=== PATIENT | male | born 1950 | race Caucasian/White ===

== ENCOUNTER → 2017-09-30 | Outpatient (CLI) | payer MEDICARE, OTHER ==
[~2017-09-30] MED LIST: ATOR20 PO; ATOR40TA PO; IBUP200 PO
== END ==
LOC: LAB SHORT 14:11 → PLD 14:11
DX: L98.9 Disorder of the skin and subcutaneous tissue, unspecified (principal)
CPT/HCPCS: 88305; 88312

== ENCOUNTER 2017-11-06 06:58 | Day surgery (SDC) | payer MEDICARE, OTHER ==
[~2017-11-06] VITALS: Ht 177.8 cm; Wt 82.1 kg
[~2017-11-06 06:58] MED LIST changes: +ATEN25; +CHLO25B; +FENO48; +LOSA25; +OMEPRAZOLE MAGN20 MG
== END 2017-11-06 09:16 | disposition home or self-care (01) ==
LOC: ORSCSDS 06:58
PROVIDERS: Internal Medicine Gastroenterology
PROC: 0DBN8ZX Excision of Sigmoid Colon, Via Natural or Artificial Opening Endoscopic, Diagnostic (ICD-10-PCS; principal; 2017-11-06 08:30)
DX: Z12.11 Encounter for screening for malignant neoplasm of colon (principal); K63.5 Polyp of colon; K57.30 Diverticulosis of large intestine without perforation or abscess without bleeding; K64.8 Other hemorrhoids; Z86.010 Personal history of colon polyps; K21.9 Gastro-esophageal reflux disease without esophagitis; E78.5 Hyperlipidemia, unspecified; I10 Essential (primary) hypertension; Z87.11 Personal history of peptic ulcer disease; Z87.891 Personal history of nicotine dependence; Z79.899 Other long term (current) drug therapy
CPT/HCPCS: J0330; J1980; J2405; J7120

== ENCOUNTER 2018-11-03 11:23 | Inpatient (IN) | payer OTHER, MEDICARE ==
[~2018-11-03] VITALS: Ht 175 cm; Wt 88.7 kg
[~2018-11-03 11:23] MED LIST changes: +AMLO5 PO; -ATEN25; +ATEN25 PO; -CHLO25B; +CHLO25B PO; +FISH OIL 1,0001 EAC1 PO; -LOSA25; +LOSA25 PO; +MELO7.5 PO; -OMEPRAZOLE MAGN20 MG; +OMEPRAZOLE MAGN20 MG PO; +THERA1 EACH PO; +THIA100I PO
--- NOTE | 2018-11-04 07:13 | NUR ---
Ambulatory in Day Surgery History, Chart, Medications and Allergies reviewed before start of procedure.Patient confirms NPO status and agrees with scheduled surgery. Patient reports completing Chlorhexadine shower X2 prior to admission to hospital.Surgical site prepped with 2% Chlorhexidine cloth wipe.
--- NOTE | 2018-11-04 10:24 | NUR ---
PT HAS BEEN RATING PAIN WITH OUT PROBELM AND IT WENT FROM 01/24 TO 07/27 HE CONTINUED TO MAON AND GANESH I TALKED WITH HIM ABOUT RATING PAIN HE CONMYNORINUES TO SAY 07/27. I THEN SHOWED HIM FACE SCALE PICTURES AND HE NOW RATES PAIN 11/24. MEDICATED PRESCRIBED
--- NOTE | 2018-11-04 15:03 | NUR ---
CALLED PHARMACY [facility] AND CEFAZOLIN COMPATABILE TO RUN.
--- NOTE | 2018-11-04 15:20 | NUR ---
Patient gave me a nursing teacher permission to access his charts and assist in his care on 11/05/18.
--- NOTE | 2018-11-04 17:43 | NUR ---
SHIFT SUMMARY S/P L ALYSE. AQUACEL DRESSING C/D/I. AAOX4. VSS. PT MEDICATED WITH TORODOL AND TYLENOL SCHEDULED PER EMAR AND PRN OXY 5MG X2. TOLERATING PO NO C/O N/V. PT AMBULATING TO CHAIR, PHYSICAL THERAPY IN ROOM TODAY. POLAR ALEX IN PLACE. AWAITING FIRST VOID. PLAN IS FOR HOME TOMORROW.
[2018-11-05 04:53] LABS: BASOPHILS ABSOLUTE AUTO 0.01 K/mm3 (0.00-0.23); BASOPHILS PERCENT AUTO 0 % (0-2); EOSINOPHILS PERCENT AUTO 0 % (0-6); Hematocrit 35.5 % (37.0-53.0); IMMATURE GRAN ABSOLUTE AUTO 0.05 K/mm3 (0.00-0.10); IMMATURE GRAN PERCENT AUTO 0 % (0-1); LYMPHOCYTES ABSOLUTE AUTO 0.65 K/mm3 (0.84-5.20); LYMPHOCYTES PERCENT AUTO 6 % (21-46); MONOCYTES ABSOLUTE AUTO 0.79 K/mm3 (0.16-1.47); MONOCYTES PERCENT AUTO 7 % (4-13); Mean Corpuscular HGB 34.1 pg (26.0-34.0); Mean Corpuscular HGB Conc 33.8 g/dL (31.5-36.5); Mean Corpuscular Volume 101 fL (80-100); Mean Platelet Volume 8.9 fL (9.1-12.4); NEUTROPHILS ABSOLUTE AUTO 9.94 K/mm3 (1.96-9.15); NEUTROPHILS PERCENT AUTO 87 % (41-73); Platelet Count 191 K/mm3 (150-400); RDW Coefficient Variation 12.9 % (11.7-14.2); RDW Standard Deviation 47.6 fL (35.1-46.3); Red Blood Cell Count 3.52 M/mm3 (4.30-5.90); White Blood Cell Count 11.44 K/mm3 (4.00-11.30)
[2018-11-05 05:00] LABS: Anion Gap 10 mmol/L (6-16); Blood Urea Nitrogen 31 mg/dL (8-24); CO2, Blood 27 mmol/L (21-32); Calcium, Blood 8.2 mg/dL (8.5-10.1); Chloride, Blood 98 mmol/L (98-108); Creatinine, Blood 1.07 mg/dL (0.60-1.20); Glomerular Filtration Rate >60 (60-); Glucose, Blood 145 mg/dL (70-99); Potassium, Blood 3.6 mmol/L (3.5-5.5); Sodium, Blood 135 mmol/L (136-145)
--- NOTE | 2018-11-05 05:11 | NUR ---
SHIFT SUMMARY PT POD#1 LEFT ALYSE. AAOX4. DISCOMFORT CONTROLLED WITH 10MG ROXICODONE Q4-5P. NO NAUSEA/EMESIS. AQUACEL C/D/I. PT UP SBA WITH FWW TO AMBULATE, UP TO DANGLE AT BEDSIDE MULTIPLES TIMES T/O NIGHT. GOOD PO INTAKE + IVF CONTINUED T/O NIGHT. URINE LIZANDRO IN COLOR. PT RESTED INFREQUENTLY T/O NIGHT. CONTINUE TO ENCOURAGE AMBULATION TODAY TOLERATED. CALL LIGHT IN REACH + PT USES FOR ASSISTANCE.
[2018-11-05] MEDS ORDERED: LO-DOSE ASPIRIN81 MG PO (09:30)
[2018-11-05] MEDS ORDERED: Percocet 5-3251 EACH PO (09:30)
--- NOTE | 2018-11-05 09:49 | NUR ---
ITCHING PATIENT REPORTS ITCHING ON HIS TRUNK, NO RASH OR REDNESS NOTED. PATIENT DENIES NEED FOR BENADRYL AND PATIENT WILL LET ME KNOW IF ITCHING WORSENS
--- NOTE | 2018-11-05 10:30 | NUR ---
11/05/18 1030 Valeriano Thompson CORECTION ON LOT NUMBER BY TRAY NOLASCO
--- NOTE | 2018-11-05 14:45 | NUR ---
DISCHARGE DISCHARGE INSTRUCTIONS REVIEWED WITH PATIENT AND HIS . NEW AQUACEL DRESSING APPLIED TO LEFT HIP. INCISION WITHOUT REDNESS, DRAINAGE AND IS APPROXIMATED. PRESCRIPTIONS PROVIDED TO PATIENT. PATIENT AND HIS DENY QUESTIONS REGARDING DISCHARGE
== END 2018-11-05 14:47 | disposition home or self-care (01) | DRG 470 ==
LOC: SURS 11-04 05:54 → PRE IP 11-04 07:30 → SURS 11-04 10:50
PROVIDERS: ADMIT Orthopaedic Surgery
PROC: 0SRB0JZ Replacement of Left Hip Joint with Synthetic Substitute, Open Approach (ICD-10-PCS; principal; 2018-11-04 07:30)
DX: M16.12 Unilateral primary osteoarthritis, left hip (principal); I10 Essential (primary) hypertension; E78.5 Hyperlipidemia, unspecified; K21.9 Gastro-esophageal reflux disease without esophagitis; K27.9 Peptic ulcer, site unspecified, unspecified as acute or chronic, without hemorrhage or perforation; K70.10 Alcoholic hepatitis without ascites
CPT/HCPCS: 36415; 72170; 80048; 85025; 86850; 86900; 86901; 88300; 97110; 97116; 97161; 97530; C1776; J0171; J0690; J0735; J1100; J1885; J2250; J2370; J2405; J2704; J2795; J3010; J7120

== ENCOUNTER 2020-03-30 14:23 | Day surgery (SDC) | payer OTHER, MEDICARE ==
[~2020-03-30 14:23] MED LIST changes: +LO-DOSE ASPIRIN81 MG PO; +Percocet 5-3251 EACH PO
== END 2020-03-30 16:00 | disposition home or self-care (01) ==
LOC: ATC 14:23
DX: M27.2 Inflammatory conditions of jaws (principal); I10 Essential (primary) hypertension; E66.9 Obesity, unspecified; Z87.891 Personal history of nicotine dependence; Z68.26 Body mass index [BMI] 26.0-26.9, adult; K21.9 Gastro-esophageal reflux disease without esophagitis; E78.2 Mixed hyperlipidemia; Z88.5 Allergy status to narcotic agent; Z88.8 Allergy status to other drugs, medicaments and biological substances; Z79.899 Other long term (current) drug therapy
CPT/HCPCS: 36569; 71045; C1751

== ENCOUNTER 2020-04-01 10:09 | Day surgery (SDC) | payer OTHER, MEDICARE ==
[2020-04-02] MEDS ORDERED: ERTAPENEM1 G1 IV (10:30)
== END 2020-04-01 15:46 | disposition home or self-care (01) ==
LOC: ATC 10:09
DX: M27.2 Inflammatory conditions of jaws (principal); I10 Essential (primary) hypertension; E66.9 Obesity, unspecified; Z68.26 Body mass index [BMI] 26.0-26.9, adult; Z87.891 Personal history of nicotine dependence; Z79.899 Other long term (current) drug therapy
CPT/HCPCS: 96365; J1335

== ENCOUNTER 2020-04-02 00:04 | Day surgery (SDC) | payer OTHER, MEDICARE ==
[2020-04-02] MEDS ORDERED: ERTAPENEM1 G1 IV (10:30)
== END 2020-04-02 10:25 | disposition home or self-care (01) ==
LOC: ATC 00:04
DX: M27.2 Inflammatory conditions of jaws (principal); I10 Essential (primary) hypertension; I24.8 Other forms of acute ischemic heart disease; E66.9 Obesity, unspecified; D50.9 Iron deficiency anemia, unspecified; Z68.26 Body mass index [BMI] 26.0-26.9, adult; Z79.2 Long term (current) use of antibiotics; Z88.5 Allergy status to narcotic agent; Z79.82 Long term (current) use of aspirin; Z79.899 Other long term (current) drug therapy; Z45.2 Encounter for adjustment and management of vascular access device; Z87.891 Personal history of nicotine dependence
CPT/HCPCS: 96365; J1335

== ENCOUNTER 2020-04-03 00:05 | Day surgery (SDC) | payer OTHER, MEDICARE ==
[~2020-04-03 00:05] MED LIST changes: +ERTAPENEM1 G1 IV
== END 2020-04-03 11:42 | disposition home or self-care (01) ==
LOC: ATC 00:05
DX: M27.2 Inflammatory conditions of jaws (principal); I10 Essential (primary) hypertension; E66.9 Obesity, unspecified; K04.7 Periapical abscess without sinus; Z68.26 Body mass index [BMI] 26.0-26.9, adult; Z79.899 Other long term (current) drug therapy
CPT/HCPCS: 96365; J1335

== ENCOUNTER 2020-04-04 00:27 | Day surgery (SDC) | payer OTHER, MEDICARE | END 2020-04-04 16:30 | disposition home or self-care (01) | LOC: ATC 00:27 | DX: M27.2 Inflammatory conditions of jaws (principal); I10 Essential (primary) hypertension; E66.9 Obesity, unspecified; K04.7 Periapical abscess without sinus; Z87.891 Personal history of nicotine dependence; Z68.26 Body mass index [BMI] 26.0-26.9, adult; Z79.899 Other long term (current) drug therapy | CPT/HCPCS: 96365; J1335 ==

== ENCOUNTER 2020-04-05 00:27 | Day surgery (SDC) | payer OTHER, MEDICARE | END 2020-04-05 11:00 | disposition home or self-care (01) | LOC: ATC 00:27 | DX: M27.2 Inflammatory conditions of jaws (principal); I10 Essential (primary) hypertension; I24.8 Other forms of acute ischemic heart disease; E66.9 Obesity, unspecified; E78.2 Mixed hyperlipidemia; R73.03 Prediabetes; M17.12 Unilateral primary osteoarthritis, left knee; Z68.26 Body mass index [BMI] 26.0-26.9, adult; Z79.2 Long term (current) use of antibiotics; Z79.82 Long term (current) use of aspirin; Z79.899 Other long term (current) drug therapy; Z88.5 Allergy status to narcotic agent; Z88.8 Allergy status to other drugs, medicaments and biological substances; Z87.891 Personal history of nicotine dependence | CPT/HCPCS: 96365; J1335 ==

== ENCOUNTER 2020-04-06 00:33 | Day surgery (SDC) | payer OTHER, MEDICARE ==
[2020-04-06 11:17] LABS: BASOPHILS ABSOLUTE AUTO 0.07 K/mm3 (0.00-0.23); BASOPHILS PERCENT AUTO 1 % (0-2); EOSINOPHILS ABSOLUTE AUTO 0.04 K/mm3 (0.00-0.68); EOSINOPHILS PERCENT AUTO 1 % (0-6); Hemoglobin 13.3 g/dL (13.5-17.5); IMMATURE GRAN ABSOLUTE AUTO 0.02 K/mm3 (0.00-0.10); IMMATURE GRAN PERCENT AUTO 0 % (0-1); LYMPHOCYTES ABSOLUTE AUTO 1.12 K/mm3 (0.84-5.20); LYMPHOCYTES PERCENT AUTO 16 % (21-46); MONOCYTES ABSOLUTE AUTO 0.75 K/mm3 (0.16-1.47); MONOCYTES PERCENT AUTO 11 % (4-13); Mean Corpuscular HGB 34.4 pg (26.0-34.0); Mean Corpuscular HGB Conc 33.3 g/dL (31.5-36.5); Mean Corpuscular Volume 103 fL (80-100); Mean Platelet Volume 8.9 fL (9.1-12.4); NEUTROPHILS ABSOLUTE AUTO 5.11 K/mm3 (1.96-9.15); NEUTROPHILS PERCENT AUTO 72 % (41-73); Platelet Count 214 K/mm3 (150-400); RDW Coefficient Variation 13.5 % (11.7-14.2); RDW Standard Deviation 51.5 fL (35.1-46.3); Red Blood Cell Count 3.87 M/mm3 (4.30-5.90); White Blood Cell Count 7.11 K/mm3 (4.00-11.30)
[2020-04-06 11:32] LABS: Alanine Aminotransfer (ALT/SGP 95 U/L (12-78); Albumin, Blood 3.3 g/dL (3.4-5.0); Albumin/Globulin Ratio 0.8 (0.8-1.8); Alk Phos 116 U/L (50-136); Anion Gap 7 mmol/L (6-16); Aspartate Aminotrans (AST/SGOT 89 U/L (12-37); Bilirubin, Total 0.4 mg/dL (0.1-1.0); Blood Urea Nitrogen 25 mg/dL (8-24); Bun/Creatinine Ratio 26.4 (12.0-20.0); CO2, Blood 29 mmol/L (21-32); Calcium, Blood 9.3 mg/dL (8.5-10.1); Chloride, Blood 104 mmol/L (98-108); Creatinine, Blood 0.95 mg/dL (0.60-1.20); Globulin, Blood 4.4 g/dL (2.2-4.0); Glomerular Filtration Rate >60 (60-); Glucose, Blood 120 mg/dL (70-99); Potassium, Blood 3.4 mmol/L (3.5-5.5); Sodium, Blood 140 mmol/L (136-145); Total Protein, Blood 7.7 g/dL (6.4-8.2)
[2020-04-07] MEDS ORDERED: Hair, Skin & N1 EACH PO (10:45)
[2020-04-07] MEDS ORDERED: Aspir 8181 MG PO (10:45)
[2020-04-07] MEDS ORDERED: B-1100 M1 PO (10:46)
== END 2020-04-06 10:59 | disposition home or self-care (01) ==
LOC: ATC 00:33
PROVIDERS: Internal Medicine Infectious Disease
DX: M27.2 Inflammatory conditions of jaws (principal); I10 Essential (primary) hypertension; E66.9 Obesity, unspecified; K04.7 Periapical abscess without sinus; Z79.899 Other long term (current) drug therapy; Z87.891 Personal history of nicotine dependence; Z68.26 Body mass index [BMI] 26.0-26.9, adult
CPT/HCPCS: 80053; 85025; 85651; 86140; 96365; J1335

== ENCOUNTER 2020-04-07 00:39 | Day surgery (SDC) | payer OTHER, MEDICARE ==
[2020-04-07] MEDS ORDERED: Hair, Skin & N1 EACH PO (10:45)
[2020-04-07] MEDS ORDERED: Aspir 8181 MG PO (10:45)
[2020-04-07] MEDS ORDERED: B-1100 M1 PO (10:46)
== END 2020-04-07 11:08 | disposition home or self-care (01) ==
LOC: ATC 00:39
DX: M27.2 Inflammatory conditions of jaws (principal); I10 Essential (primary) hypertension; E66.9 Obesity, unspecified; K04.7 Periapical abscess without sinus; Z87.891 Personal history of nicotine dependence; Z68.26 Body mass index [BMI] 26.0-26.9, adult; Z79.899 Other long term (current) drug therapy
CPT/HCPCS: 96365; J1335

== ENCOUNTER 2020-04-08 02:07 | Day surgery (SDC) | payer OTHER, MEDICARE ==
[~2020-04-08 02:07] MED LIST changes: +Aspir 8181 MG PO; +B-1100 M1 PO; +Hair, Skin & N1 EACH PO
== END 2020-04-08 15:15 | disposition home or self-care (01) ==
LOC: ATC 02:07
DX: M27.2 Inflammatory conditions of jaws (principal); I10 Essential (primary) hypertension; E66.9 Obesity, unspecified; K04.7 Periapical abscess without sinus; Z68.26 Body mass index [BMI] 26.0-26.9, adult; Z87.891 Personal history of nicotine dependence; Z79.899 Other long term (current) drug therapy
CPT/HCPCS: 96365; J1335

== ENCOUNTER 2020-04-09 00:16 | Day surgery (SDC) | payer OTHER, MEDICARE | END 2020-04-09 10:22 | disposition home or self-care (01) | LOC: ATC 00:16 | DX: M27.2 Inflammatory conditions of jaws (principal); I10 Essential (primary) hypertension; K04.7 Periapical abscess without sinus; E66.9 Obesity, unspecified; Z68.26 Body mass index [BMI] 26.0-26.9, adult; Z79.899 Other long term (current) drug therapy | CPT/HCPCS: 96365; J1335 ==

== ENCOUNTER 2020-04-11 00:10 | Day surgery (SDC) | payer OTHER, MEDICARE | END 2020-04-11 14:57 | disposition home or self-care (01) | LOC: ATC 00:10 | DX: M27.2 Inflammatory conditions of jaws (principal); I10 Essential (primary) hypertension; I24.8 Other forms of acute ischemic heart disease; E78.2 Mixed hyperlipidemia; R73.03 Prediabetes; M17.12 Unilateral primary osteoarthritis, left knee; E66.9 Obesity, unspecified; Z68.26 Body mass index [BMI] 26.0-26.9, adult; Z79.2 Long term (current) use of antibiotics; Z79.82 Long term (current) use of aspirin; Z79.899 Other long term (current) drug therapy; Z88.5 Allergy status to narcotic agent; Z87.891 Personal history of nicotine dependence | CPT/HCPCS: 96365; J1335 ==

== ENCOUNTER 2020-04-12 00:21 | Day surgery (SDC) | payer OTHER, MEDICARE | END 2020-04-12 10:35 | disposition home or self-care (01) | LOC: ATC 00:21 | DX: M27.2 Inflammatory conditions of jaws (principal); I10 Essential (primary) hypertension; I24.8 Other forms of acute ischemic heart disease; E78.2 Mixed hyperlipidemia; R73.03 Prediabetes; M17.12 Unilateral primary osteoarthritis, left knee; E66.9 Obesity, unspecified; Z68.26 Body mass index [BMI] 26.0-26.9, adult; Z79.2 Long term (current) use of antibiotics; Z79.82 Long term (current) use of aspirin; Z79.899 Other long term (current) drug therapy; Z88.5 Allergy status to narcotic agent; Z87.891 Personal history of nicotine dependence | CPT/HCPCS: 96365; J1335 ==

== ENCOUNTER 2020-04-14 00:21 | Day surgery (SDC) | payer OTHER, MEDICARE | END 2020-04-14 10:50 | disposition home or self-care (01) | LOC: ATC 00:21 | DX: M27.2 Inflammatory conditions of jaws (principal); I10 Essential (primary) hypertension; E66.9 Obesity, unspecified; Z68.26 Body mass index [BMI] 26.0-26.9, adult; Z79.899 Other long term (current) drug therapy; K04.7 Periapical abscess without sinus | CPT/HCPCS: 96365; J1335 ==

== ENCOUNTER 2020-04-15 01:35 | Day surgery (SDC) | payer OTHER, MEDICARE | END 2020-04-15 11:02 | disposition home or self-care (01) | LOC: ATC 01:35 | DX: M27.2 Inflammatory conditions of jaws (principal); I10 Essential (primary) hypertension; E66.9 Obesity, unspecified; Z68.26 Body mass index [BMI] 26.0-26.9, adult; Z79.899 Other long term (current) drug therapy | CPT/HCPCS: J1335 ==

== ENCOUNTER 2020-04-16 05:25 | Day surgery (SDC) | payer OTHER, MEDICARE | END 2020-04-16 10:20 | disposition home or self-care (01) | LOC: ATC 05:25 | DX: M27.2 Inflammatory conditions of jaws (principal); I10 Essential (primary) hypertension; I24.8 Other forms of acute ischemic heart disease; R73.03 Prediabetes; E78.2 Mixed hyperlipidemia; M17.12 Unilateral primary osteoarthritis, left knee; E66.9 Obesity, unspecified; Z68.26 Body mass index [BMI] 26.0-26.9, adult; Z79.2 Long term (current) use of antibiotics; Z79.82 Long term (current) use of aspirin; Z79.899 Other long term (current) drug therapy; Z88.5 Allergy status to narcotic agent; Z87.891 Personal history of nicotine dependence | CPT/HCPCS: J1335 ==

== ENCOUNTER 2020-04-17 09:48 | Day surgery (SDC) | payer OTHER, MEDICARE | END 2020-04-17 10:31 | disposition home or self-care (01) | LOC: ATC 09:48 | DX: M27.2 Inflammatory conditions of jaws (principal); I10 Essential (primary) hypertension; E66.9 Obesity, unspecified; Z68.26 Body mass index [BMI] 26.0-26.9, adult; Z79.899 Other long term (current) drug therapy; K04.7 Periapical abscess without sinus | CPT/HCPCS: J1335 ==

== ENCOUNTER 2020-04-19 02:12 | Day surgery (SDC) | payer OTHER, MEDICARE ==
--- NOTE | 2020-04-19 11:47 | NUR ---
PT CONCERNED THAT HIS INFECTION IS NOT GONE IN HIS NECK. PT STATES HE STILL HAS A DRAIN IN HIS NECK. DISCUSSED WITH PT WHAT THE LAB WORK IS SHOWING.
== END 2020-04-19 10:33 | disposition home or self-care (01) ==
LOC: ATC 02:12
DX: M27.2 Inflammatory conditions of jaws (principal); Z68.26 Body mass index [BMI] 26.0-26.9, adult; E66.9 Obesity, unspecified; I10 Essential (primary) hypertension; Z79.899 Other long term (current) drug therapy
CPT/HCPCS: 96365; J1335

== ENCOUNTER 2021-04-03 16:55 | Inpatient (IN) | payer OTHER ==
[~2021-04-03] VITALS: Ht 177.8 cm; Wt 80.0 kg
[2021-04-03 18:18] LABS: BASOPHILS ABSOLUTE AUTO 0.05 K/mm3 (0.00-0.23); BASOPHILS PERCENT AUTO 0 % (0-2); EOSINOPHILS ABSOLUTE AUTO 0.05 K/mm3 (0.00-0.68); EOSINOPHILS PERCENT AUTO 0 % (0-6); Hematocrit 40.5 % (37.0-53.0); Hemoglobin 14.2 g/dL (13.5-17.5); IMMATURE GRAN ABSOLUTE AUTO 0.07 K/mm3 (0.00-0.10); IMMATURE GRAN PERCENT AUTO 1 % (0-1); LYMPHOCYTES ABSOLUTE AUTO 0.89 K/mm3 (0.84-5.20); LYMPHOCYTES PERCENT AUTO 8 % (21-46); MONOCYTES ABSOLUTE AUTO 1.04 K/mm3 (0.16-1.47); MONOCYTES PERCENT AUTO 9 % (4-13); Mean Corpuscular HGB Conc 35.1 g/dL (31.5-36.5); Mean Corpuscular Volume 103 fL (80-100); Mean Platelet Volume 8.7 fL (9.1-12.4); NEUTROPHILS ABSOLUTE AUTO 9.53 K/mm3 (1.96-9.15); NEUTROPHILS PERCENT AUTO 82 % (41-73); Platelet Count 271 K/mm3 (150-400); RDW Coefficient Variation 13.4 % (11.7-14.2); RDW Standard Deviation 51.4 fL (35.1-46.3); Red Blood Cell Count 3.94 M/mm3 (4.30-5.90); White Blood Cell Count 11.63 K/mm3 (4.00-11.30)
[2021-04-03] MEDS ORDERED: Mobic15 MG PO (18:24)
[2021-04-03] MEDS ORDERED: ROSU10TA PO (18:25)
[2021-04-03 18:52] LABS: Bun/Creatinine Ratio 22.8 (12.0-20.0); Calcium, Blood 9.3 mg/dL (8.5-10.1); Creatinine, Blood 1.49 mg/dL (0.60-1.20); Potassium, Blood 2.7 mmol/L (3.5-5.5)
[2021-04-03 21:51] LABS: SARS-Cov-2 (COVID-19) PCR, MMC NEGATIVE (NEGATIVE)
--- NOTE | 2021-04-04 01:32 | NUR ---
ADMISSION: RECEIVED PT FROM ER AAOX3. VSS. ORIENTED PT TO CALL LIGHT, ROOM, AND SURROUNDINGS. ON TELE SR. ABD FIRM AND TENDER. BOWEL SOUNDS POSITIVE. IVF INFUSING. POTASSIUM GIVEN PER ORDER. CALL LIGHT WTHIN REACH. WILL CONTINUE TO MONITOR.
[2021-04-04 05:11] LABS: BASOPHILS ABSOLUTE AUTO 0.05 K/mm3 (0.00-0.23); BASOPHILS PERCENT AUTO 1 % (0-2); EOSINOPHILS ABSOLUTE AUTO 0.06 K/mm3 (0.00-0.68); EOSINOPHILS PERCENT AUTO 1 % (0-6); Hematocrit 37.9 % (37.0-53.0); Hemoglobin 13.4 g/dL (13.5-17.5); IMMATURE GRAN ABSOLUTE AUTO 0.06 K/mm3 (0.00-0.10); IMMATURE GRAN PERCENT AUTO 1 % (0-1); LYMPHOCYTES ABSOLUTE AUTO 1.16 K/mm3 (0.84-5.20); LYMPHOCYTES PERCENT AUTO 11 % (21-46); MONOCYTES ABSOLUTE AUTO 1.05 K/mm3 (0.16-1.47); MONOCYTES PERCENT AUTO 10 % (4-13); Mean Corpuscular HGB 36.6 pg (26.0-34.0); Mean Corpuscular HGB Conc 35.4 g/dL (31.5-36.5); Mean Corpuscular Volume 104 fL (80-100); Mean Platelet Volume 8.8 fL (9.1-12.4); NEUTROPHILS ABSOLUTE AUTO 8.67 K/mm3 (1.96-9.15); NEUTROPHILS PERCENT AUTO 79 % (41-73); Platelet Count 240 K/mm3 (150-400); RDW Coefficient Variation 13.6 % (11.7-14.2); RDW Standard Deviation 52.2 fL (35.1-46.3); Red Blood Cell Count 3.66 M/mm3 (4.30-5.90); White Blood Cell Count 11.05 K/mm3 (4.00-11.30)
[2021-04-04 05:26] LABS: Bun/Creatinine Ratio 24.8 (12.0-20.0); Calcium, Blood 8.7 mg/dL (8.5-10.1); Creatinine, Blood 1.21 mg/dL (0.60-1.20); Potassium, Blood 2.9 mmol/L (3.5-5.5)
[2021-04-04 14:35] LABS: Anion Gap 8 mmol/L (6-16); Blood Urea Nitrogen 26 mg/dL (8-24); Bun/Creatinine Ratio 23.9 (12.0-20.0); CO2, Blood 23 mmol/L (21-32); Calcium, Blood 9.2 mg/dL (8.5-10.1); Chloride, Blood 106 mmol/L (98-108); Creatinine, Blood 1.09 mg/dL (0.60-1.20); Glomerular Filtration Rate >60 (60-); Glucose, Blood 127 mg/dL (70-99); Potassium, Blood 2.9 mmol/L (3.5-5.5); Sodium, Blood 137 mmol/L (136-145)
--- NOTE | 2021-04-04 18:23 | NUR ---
PT AAOX4, NO ACUTE DISTRESS,POC REVIEWED WITH PT, POTASSIUM AM 2.9, REPLACED BY 40 MEQ PO. RECHECKED LABS, 2.9 STILL, N.O FOR 20 MEQ X 2 PIGGY BAG POTASSUIM. INFUSING . PT C/O OF DIARRHEA, STOOL SPECIMEN NEEDED, HAT IN AWAITING FOR BM. PT AWARE OF ORDERS,NEXT SHIFT TO FOLLOW. PT CONTINENT OF B/B.CALL WITHIN RANGE AND MONITORING CONTNIUES
--- NOTE | 2021-04-04 18:46 | NUR ---
STOOL SPECIMEN COLLECTED
[2021-04-04 21:27] LABS: Adenovirus F 40/41 Not Detected (NOT DETECT); Astrovirus Not Detected (NOT DETECT); Campylobacter Sp Not Detected (NOT DETECT); Cryptosporidium Not Detected (NOT DETECT); Cyclospora Cayetanensis Not Detected (NOT DETECT); E. Coli O157 Not Detected (NOT DETECT); Entamoeba Histolytica Not Detected (NOT DETECT); Enteroaggregative E. coli-EAEC Not Detected (NOT DETECT); Enteropathogenic E. coli-EPEC Not Detected (NOT DETECT); Enterotoxigenic E. coli-ETEC Not Detected (NOT DETECT); Giardia Lamblia Not Detected (NOT DETECT); Norovirus GI/GII Not Detected (NOT DETECT); Plesiomonas Shigelloides Not Detected (NOT DETECT); Rotavirus A Not Detected (NOT DETECT); Salmonella Sp Not Detected (NOT DETECT); Sapovirus Not Detected (NOT DETECT); Shiga Toxin-prod E. coli-STEC Not Detected (NOT DETECT); Shigella/Enteroin E. coli-EIEC Not Detected (NOT DETECT); Vibrio Cholerae Not Detected (NOT DETECT); Vibrio Sp Not Detected (NOT DETECT); Yersinia Enterocolitica Not Detected (NOT DETECT)
[2021-04-05 05:06] LABS: BASOPHILS ABSOLUTE AUTO 0.07 K/mm3 (0.00-0.23); BASOPHILS PERCENT AUTO 1 % (0-2); EOSINOPHILS ABSOLUTE AUTO 0.11 K/mm3 (0.00-0.68); EOSINOPHILS PERCENT AUTO 1 % (0-6); Hematocrit 37.9 % (37.0-53.0); Hemoglobin 13.3 g/dL (13.5-17.5); IMMATURE GRAN ABSOLUTE AUTO 0.05 K/mm3 (0.00-0.10); IMMATURE GRAN PERCENT AUTO 1 % (0-1); LYMPHOCYTES PERCENT AUTO 10 % (21-46); MONOCYTES ABSOLUTE AUTO 0.78 K/mm3 (0.16-1.47); MONOCYTES PERCENT AUTO 9 % (4-13); Mean Corpuscular HGB Conc 35.1 g/dL (31.5-36.5); Mean Corpuscular Volume 103 fL (80-100); Mean Platelet Volume 8.8 fL (9.1-12.4); NEUTROPHILS ABSOLUTE AUTO 7.17 K/mm3 (1.96-9.15); NEUTROPHILS PERCENT AUTO 79 % (41-73); Platelet Count 252 K/mm3 (150-400); RDW Coefficient Variation 13.2 % (11.7-14.2); RDW Standard Deviation 50.7 fL (35.1-46.3); Red Blood Cell Count 3.69 M/mm3 (4.30-5.90); White Blood Cell Count 9.08 K/mm3 (4.00-11.30)
[2021-04-05 05:23] LABS: Albumin, Blood 2.4 g/dL (3.4-5.0); Anion Gap 9 mmol/L (6-16); Blood Urea Nitrogen 21 mg/dL (8-24); Bun/Creatinine Ratio 21.3 (12.0-20.0); CO2, Blood 22 mmol/L (21-32); Chloride, Blood 106 mmol/L (98-108); Creatinine, Blood 0.99 mg/dL (0.60-1.20); Glomerular Filtration Rate >60 (60-); Glucose, Blood 106 mg/dL (70-99); Phosphorus, Blood 2.4 mg/dL (2.5-4.9); Potassium, Blood 2.8 mmol/L (3.5-5.5); Sodium, Blood 137 mmol/L (136-145)
--- NOTE | 2021-04-05 05:32 | NUR ---
PT IN BED AAO. DENIES PAIN. NO EPISODE OF DIARRHEA DURING SHIFT. POTASSIUM GIVEN PER AUG. NO EVENT ON TELE. ASSISTED WITH NEEDS. CALL LIGHT WITHIN REACH.
[2021-04-05 12:18] LABS: Phosphorus, Blood 2.8 mg/dL (2.5-4.9); Potassium, Blood 3.2 mmol/L (3.5-5.5)
[2021-04-05] MEDS ORDERED: FOLI1 PO (13:55)
[2021-04-05] MEDS ORDERED: ACET325 PO (13:55)
[2021-04-05] MEDS ORDERED: LACT PO (13:55)
[2021-04-05] MEDS ORDERED: AMOCLA875 PO (13:56)
[2021-04-05] MEDS ORDERED: METR500 PO (13:56)
[2021-04-05] MEDS ORDERED: POTA10T PO (13:57)
--- NOTE | 2021-04-05 18:23 | NUR ---
PT DISCHARGED HOME AT 1622, D/C INSTRUCTIONS GIVEN WITH AT BEDSIDE,D/C MEDS SENT TO [facility] REQUESTED. POTASSUIM INCREASED TO 3.2 AND REPLACED WITH 40 MEQ PO ORDERED PRIOR TO D/C. DENIED PAIN, NO ACUTE DISTRESS, PT LEFT ACCOMPANIED BY STAFF TO FAMILY CAR WITH .
== END 2021-04-05 16:40 | disposition home or self-care (01) | DRG 690 ==
LOC: ER 16:55 → MEDS 16:56
PROVIDERS: Emergency Medicine; Internal Medicine; ADMIT Family Medicine
DX: N30.80 Other cystitis without hematuria (principal); N17.9 Acute kidney failure, unspecified; Z20.822 Contact with and (suspected) exposure to COVID-19; I10 Essential (primary) hypertension; E78.5 Hyperlipidemia, unspecified; E87.6 Hypokalemia; F10.20 Alcohol dependence, uncomplicated; M19.90 Unspecified osteoarthritis, unspecified site; R73.03 Prediabetes; K21.9 Gastro-esophageal reflux disease without esophagitis; L40.9 Psoriasis, unspecified; M10.9 Gout, unspecified; Z90.49 Acquired absence of other specified parts of digestive tract; Z79.82 Long term (current) use of aspirin; Z79.899 Other long term (current) drug therapy; Z87.891 Personal history of nicotine dependence
CPT/HCPCS: 0097U; 36415; 80048; 80069; 83735; 84100; 84132; 85025; 90686; 96365; 96366; 96368; 96376; 99285-25; A9270; G0008; G0378; J0696; J3480; J7030; U0004